=== PATIENT | female | born 1985 | race Caucasian/White ===

== ENCOUNTER 2020-07-29 10:36 | Emergency (ER) | payer MEDICAID ==
[~2020-07-29] VITALS: Ht 165.1 cm; Wt 82.6 kg
[2020-07-29 10:44] VITALS: BP 144/87
--- NOTE | 2020-07-29 10:48 | NUR ---
Patient ambulated to bed 9. RN evaluating patient at bedside.
[2020-07-29 10:56] VITALS: BP 144/87
--- NOTE | 2020-07-29 10:56 | NUR ---
35 Y/O FEMALE PRESENTS WITH DIZZINESS AND HEADACHE FOR X2 DAYS, PATIENT STATES SHE HAS BEEN WORKING IN THE SUN AND AFTER WORK WILL BEGIN HAVING A HEADACHE AND FEELING DIZZY. DENIES ANY N/V/D. PATIENT IS ON HER MENSTRUAL PERIOD AT THIS TIME. DENIES ANY COVID LIKE SYMPTOMS. AMBULATORY, [facility] 15. PMH: HYPOTHYROIDISM
[2020-07-29] MEDS ORDERED: ACETAMINOPHEN 325 MG TAB PO ONE (11:15)
[2020-07-29 11:33] LABS: BASOPHILS % (AUTO) 0.5 % (0.0-2.0); EOSINOPHILS # (AUTO) 0.1 K/uL (0-0.4); EOSINOPHILS % (AUTO) 1.1 % (0.0-4.0); HEMATOCRIT 39.8 % (36-48); HEMOGLOBIN 13.2 g/dL (12.0-16.0); LYMPHOCYTES # (AUTO) 1.3 K/uL (2.5-16.5); MEAN CORPUSCULAR HEMOGLOBIN 27 pg (27-31); MEAN CORPUSCULAR HGB CONC 33 g/dL (33-37); MONOCYTES # (AUTO) 0.4 K/uL (0.8-1.0); MONOCYTES % (AUTO) 5.5 % (1.7-9.3); NEUTROPHILS % (AUTO) 73.9 % (42.2-75.2); PLATELET COUNT (AUTO) 232 K/uL (140-450); RED BLOOD CELL COUNT(AUTO) 4.85 MIL/uL (4.20-5.40); RED CELL DISTRIBUTION WIDTH 14.4 % (11.6-13.7); WHITE BLOOD COUNT (AUTO) 6.8 K/uL (4.8-10.8)
[2020-07-29 11:41] LABS: ANION GAP 12.8 (8-16); CARBON DIOXIDE 27.4 mmol/L (21-32); CREATININE 0.7 mg/dL (0.6-1.3); POTASSIUM 3.2 mmol/L (3.5-5.1)
--- NOTE | 2020-07-29 11:49 | NUR ---
PT TAKEN TO CT AT THIS TIME
[2020-07-29 11:55] LABS: ALBUMIN 4.3 g/dL (3.4-5.0); THYROID STIMULATING HORMONE 1.22 uIU/mL (0.34-3.74); TOTAL BILIRUBIN 0.3 mg/dL (0.0-1.0)
[2020-07-29 11:58] LABS: APPEARANCE,URINE CLEAR (CLEAR); BILIRUBIN,URINE NEGATIVE (NEGATIVE); BLOOD, URINE 3+ (NEGATIVE); COLOR,URINE YELLOW (YELLOW); LEUKOCYTE ESTERASE ,URINE NEGATIVE (NEGATIVE); NITRITE, URINE NEGATIVE (NEGATIVE); UGLUCOSE NEGATIVE (NEGATIVE)
[2020-07-29 12:47] LABS: RBC,URINE 11-20 (MOD) /HPF (0-5); WBC,URINE 0-5 /HPF (0-5)
== END 2020-07-29 13:00 | disposition home or self-care (01) ==
LOC: MED 10:36
DX: R51.9 Headache, unspecified (principal); R42 Dizziness and giddiness; R00.2 Palpitations; I10 Essential (primary) hypertension; E07.9 Disorder of thyroid, unspecified
CPT/HCPCS: 36415; 70450; 71045; 80053; 81001; 81025; 84443; 84484; 85025; 93005; 96372; 99283

== ENCOUNTER 2021-05-07 08:26 | Emergency (ER) | payer SELFPAY ==
[~2021-05-07] VITALS: Ht 167.6 cm; Wt 74.8 kg
[2021-05-07 08:28] VITALS: BP 128/86
--- NOTE | 2021-05-07 08:36 | NUR ---
PT AMBULATED TO BED 04.
--- NOTE | 2021-05-07 08:44 | NUR ---
35 Y/O FEMALE C/O DIZZINESS X 3 DAYS. PT STATES ABDOMINAL PAIN 6/10 RADIATES TO RLQ X 2 WEEKS. DENIES VOMITING, DENIES FEVER/CHILLS. PT STATES ROOM IS SPINNING AND +TINNITUS TO BILATERAL EARS. ABDOMEN IS SOFT, ROUND, NON-TENDER, BOWEL SOUNDS ACTIVE X4. PMH: HYPOTHYROID NKA
--- NOTE | 2021-05-07 09:41 | NUR ---
per ermd 12 lead was done on pt and came back ectopic atrial rhythm at 64 hr.
[2021-05-07 09:56] LABS: BASOPHILS % (AUTO) 0.4 % (0.0-2.0); EOSINOPHILS # (AUTO) 0.1 K/uL (0-0.4); HEMATOCRIT 42.3 % (36-48); HEMOGLOBIN 14.2 g/dL (12.0-16.0); LYMPHOCYTES % (AUTO) 30.6 % (20.5-51.1); MEAN CORPUSCULAR HEMOGLOBIN 29 pg (27-31); MEAN CORPUSCULAR HGB CONC 34 g/dL (33-37); MONOCYTES # (AUTO) 0.4 K/uL (0.8-1.0); MONOCYTES % (AUTO) 5.6 % (1.7-9.3); NEUTROPHILS % (AUTO) 62.4 % (42.2-75.2); PLATELET COUNT (AUTO) 233 K/uL (140-450); RED BLOOD CELL COUNT(AUTO) 4.86 MIL/uL (4.20-5.40); RED CELL DISTRIBUTION WIDTH 12.7 % (11.6-13.7); WHITE BLOOD COUNT (AUTO) 6.4 K/uL (4.8-10.8)
[2021-05-07 09:59] LABS: ANION GAP 9.8 (8-16); CARBON DIOXIDE 27.8 mmol/L (21-32); CREATININE 0.7 mg/dL (0.6-1.3); POTASSIUM 4.6 mmol/L (3.5-5.1); TOTAL BILIRUBIN 0.4 mg/dL (0.0-1.0)
[2021-05-07] MEDS: MECLIZINE 25 MG TAB PO ONE (10:00)
[2021-05-07] MEDS: NACL 0.9% 1,000 ML IV ONE (10:08)
--- NOTE | 2021-05-07 10:22 | NUR ---
PT RESTING, DENIES PAIN, DENIES DIZZINESS AT THIS TIME, VSS, WILL CONTINUE TO MONITOR.
[2021-05-07] MEDS ORDERED: MECL-303 PO (11:13)
[2021-05-07 11:34] VITALS: BP 118/70
== END 2021-05-07 11:35 | disposition home or self-care (01) ==
LOC: MED 08:26
DX: R42 Dizziness and giddiness (principal); R51.9 Headache, unspecified; M79.604 Pain in right leg; M79.605 Pain in left leg; I10 Essential (primary) hypertension; E06.9 Thyroiditis, unspecified
CPT/HCPCS: 36415; 80053; 84702; 85025; 93005; 96360; 99285; J7030; J8597